=== PATIENT | female | born 1950 | race Caucasian/White ===

== ENCOUNTER → 2022-08-07 17:22 | Outpatient (BNVA) | payer SELFPAY | DX: S63.272A Dislocation of unspecified interphalangeal joint of right middle finger, initial encounter (principal); W19.XXXA Unspecified fall, initial encounter | CPT/HCPCS: 73130 ==

== ENCOUNTER 2022-08-11 16:03 | Emergency (ER) | payer SELFPAY ==
--- NOTE | 2022-08-11 16:04 | XRR_ITS ---
PROCEDURE INFORMATION: Exam: XR Right Hand Exam date and time: 08/11/2022 4:14 PM Age: 72 years old Clinical indication: Injury or trauma; Fall; Blunt trauma (contusions or hematomas); Hand; Right TECHNIQUE: Imaging protocol: Radiologic exam of the right hand. Views: 3 or more views. COMPARISON: CR XR hand RT min 3V* [id number] 08/07/2022 5:29 PM FINDINGS: Bones/joints: Dislocation of the PIP joint of the 3rd finger is seen, most pronounced in the lateral projection. This is similar in appearance to previous exam. No fracture identified. Soft tissues: Mild soft tissue swelling of the 3rd finger. XR/XR hand RT min 3V* [id number] IMPRESSION: Dislocation of the PIP joint of the right 3rd finger with soft tissue swelling.
[2022-08-11 16:25] VITALS: BP 140/79; PULSE 82; RESP 14; TEMP 36.9; O2SAT 95; BMI 18.8
--- NOTE | 2022-08-11 16:58 | ED_ITS ---
HPI - Extremity Problem General: Chief complaint: Extremity Injury, Upper Stated complaint: right middle finger injury Time Seen by Provider: 08/11/22 16:14 Source: patient Mode of arrival: ambulatory Limitations: no limitations History of Present Illness: 72-year-old female states that she fell 2 weeks ago she injured her right middle finger she states she was seen 4 days ago at urgent care told it was dislocated and told her she needed to come to the ER to have it reset or see orthopedist she states that today was the earliest she could come here she had some pain she rates her pain 3 out of 10 denies any other injuries she unable to move that finger. Associated symptoms: Deny chest pain, fever(s) or rash Review of Systems Const: Denies: fever(s) or chills ENMT: Denies: throat pain or dental pain Card: Denies: chest pain Resp: Denies: dyspnea GI: Denies: abdominal pain, nausea, vomiting or diarrhea Musc: Reports: extremity pain; Denies: neck pain or back pain Skin/Breast: Denies: rash Neuro: Denies: headache(s) Physical Exam Const: COMMON NORMALS: no acute distress, patient oriented x3 and healthy appearing HENMT: COMMON NORMALS: normocephalic and atraumatic HEAD & SCALP: normocephalic and atraumatic Eye: COMMON NORMALS: conjunctivae normal CONJUNCTIVA: Yes conjunctivae normal Neck/C-Spine: COMMON NORMALS: full ROM and supple Chest: COMMONS NORMALS: normal inspection of the chest Resp: COMMON NORMALS: normal respiratory effort Cardio: COMMON NORMALS: regular rate, regular rhythm and No murmurs present (Cardio) RATE: regular rate RHYTHM: regular rhythm GI: INSPECTION: Yes normal to inspection Extremity: NARRATIVE EXTREMITY EXAM: Tenderness obvious deformity to right middle finger Neuro: COMMON NORMALS: patient oriented x3, moves all extremities and no focal motor deficits Psych: COMMON NORMALS: mental status grossly normal, Normal thought process present and cooperative THOUGHT PROCESS: Normal thought process present Skin: COMMON NORMALS: no rashes or lesions noted and no wounds GENERAL SKIN EXAM: no rashes or lesions noted Procedures Orthopedic Joint Reduction Joint #1: Time Out Performed: Yes Side: right Joint Reduction Location: finger Analgesia: nerve block Local Anesthesia: bupivacaine 0.5% Amount of anesthesic used (mL): 10 Technique used: traction/counter-traction Post-reduction neuro exam: intact Post-reduction vascular: intact Post Reduction X-Ray Obtained: Yes Post Reduction X-Ray Results: not reduced Splint Applied: Yes Course Vital Signs: Vital signs: Vital Signs Temperature 98.5 F 08/11/22 16:25 Pulse Rate 82 08/11/22 16:25 Respiratory Rate 14 08/11/22 16:25 Blood Pressure 140/79 08/11/22 16:25 Pulse Oximetry 95 08/11/22 16:25 Oxygen Delivery Me thod Room Air 08/11/22 16:25 MDM - Extremity (Nontraumatic) Medical Decision Making Patient presents here with finger dislocation to right middle finger it has been out for roughly 3 weeks was unable to reduce it likely for being dislocated for so long did place patient in a splint we will have him follow-up with orthopedics. Medical Records I reviewed the patient's medical records. Lab Data Radiology Impressions Hand X-Ray 08/11/22 16:04 IMPRESSION: Dislocation of the PIP joint of the right 3rd finger with soft tissue swelling. Discharge Plan Discharge Patient Disposition: Home Clinical Impression: Dislocation closed, finger Condition: Stable Prescriptions: No Action No Known Home Medications Discharge Orders: Discharge ED (Routine); Ordered 08/11/22 Ordered By: Marek Gonzalez Referrals: Sj Anne DO [Physician] - 1-3 days Discharge Diet: Advance as tolerated Discharge Activity: Resume usual activity Patient Instructions: Finger Dislocation (ED) Coding Level of Care Code ED [employer] [facility] for Carmen Desai
--- NOTE | 2022-08-11 17:11 | XRR_ITS ---
PROCEDURE INFORMATION: Exam: XR Right Hand Exam date and time: 08/11/2022 4:19 PM Age: 72 years old Clinical indication: Injury or trauma; Fall; Other: Post reduction TECHNIQUE: Imaging protocol: Radiologic exam of the right hand. Views: 1 or 2 views. COMPARISON: CR XR hand RT min 3V* [id number] 08/11/2022 4:14 PM FINDINGS: Bones/joints: Compared with prior exam, partial reduction of previous dislocation at the PIP joint of the right 3rd finger suggested, appearing incomplete. This could be associated with ligamentous laxity or trapped ligament at this level. No fracture identified. Soft tissues: Soft tissue swelling noted. XR/XR hand RT 2V [id number] IMPRESSION: Partial or incomplete reduction of previous dislocation at the PIP joint of the right 3rd finger is suggested. This may indicate significant ligamentous laxity or trapped ligament not allowing complete relocation at the joint space level of the PIP joint.
--- NOTE | 2022-08-12 09:57 | DCPLANNER ---
Addendum entered by Grace Pathak 08/15/22 09:20: collection manager received the following message from the ortho clinic regarding follow up appointment: attempt made to contact patient - number in chart states not in service. auth to discuss has a number for her life partner - called that and left a vm to have parag return our call. will also mail letter. if she calls today we will try to get in this afternoon w/ dr peck - otherwise it will be thursday Original Note: collection manager had message to schedule a follow up appointment for patient with ortho. collection manager sent patients information to the front office staff at ortho. Patients information will be printed and reviewed. Clinic will call patient with appointment information.
--- NOTE | 2022-08-13 10:19 | DCPLANNER ---
manager primary care called patient due to no primary care physician - no answer at this time.
== END 2022-08-11 17:43 | disposition home or self-care (01) ==
PROVIDERS: Emergency Provider Emergency Medicine
DX: S63.282A Dislocation of proximal interphalangeal joint of right middle finger, initial encounter (principal); W19.XXXA Unspecified fall, initial encounter
CPT/HCPCS: 26770; 73120; 73130; 99284